=== PATIENT | male | born 1965 | race Caucasian/White ===

== ENCOUNTER 2024-10-05 12:49 | Emergency (ER) | payer MEDICARE, MEDICAID ==
[~2024-10-05] VITALS: Ht 170.2 cm; Wt 82.0 kg
[2024-10-05] MEDS ORDERED: MIDAZOLAM HCL 2 MG/2 ML VIAL IM ONE (14:00)
[2024-10-05] MEDS ORDERED: VALPROATE SODIUM 1,000 MG in DEXT 5% WATER 100 ML IV ONE (14:00)
[2024-10-05 15:00] VITALS: O2SAT 97
[2024-10-05] MEDS: MIDAZOLAM HCL 2 MG/2 ML VIAL IM NR (15:00)
[2024-10-05] MEDS: LORAZEPAM 2MG/ML INJ IM ONE (15:15)
[2024-10-05] MEDS: LEVETIRACETAM 1000MG PREMIX 100 ML IV ONE (16:02)
[2024-10-05 16:21] LABS: BASOPHILS % 0.2 % (0.0-2.0); HEMATOCRIT. 42.6 % (42.0-52.0); HEMOGLOBIN. 14.1 g/dL (14.0-18.0); MEAN CORPUSCULAR HEMOGLOBIN 31.6 pg (28.0-32.0); MEAN CORPUSCULAR HGB CONC 33.1 g/dL (31.0-37.0); MEAN CORPUSCULAR VOLUME 95.5 fL (80.0-94.0); MEAN PLATELET VOLUME 8.9 fl (7.4-10.4); MONOCYTES % 4.8 % (2.0-8.0); PLATELET 248 x1000/uL (130-400); RED BLOOD CELL COUNT 4.46 mill/uL (4.7-6.1); RED CELL DISTRIBUTION WIDTH 14.6 % (11.6-14.6); WHITE BLOOD COUNT 10.6 x1000/uL (4.5-11.0)
[2024-10-05 16:23] LABS: CHLORIDE 105 mEq/L (98-107); POTASSIUM 3.5 mEq/L (3.5-5.1); SODIUM 139 mEq/L (136-145)
[2024-10-05 16:24] LABS: CALCIUM 9.2 mg/dL (8.7-10.4); CARBON DIOXIDE 28 mEq/L (21-32)
[2024-10-05 16:29] LABS: CREATININE 0.8 mg/dL (0.6-1.3); GLUCOSE 152 mg/dL (70-105); UREA NITROGEN BLOOD 10 mg/dL (9-23)
[2024-10-05 16:41] LABS: ETHANOL BLOOD < 10 mg/dL (<10)
[2024-10-05] MEDS: VALPROATE SODIUM 1,000 MG in DEXT 5% WATER 100 ML IV NR (16:43)
[2024-10-05 19:15] VITALS: TEMP 36.94740
[2024-10-05 21:10] VITALS: BP 110/70; PULSE 62; RESP 16; O2SAT 99
== END 2024-10-05 21:11 | disposition home or self-care (01) ==
LOC: ER 12:49
DX: S00.11XA Contusion of right eyelid and periocular area, initial encounter (principal); G40.909 Epilepsy, unspecified, not intractable, without status epilepticus; J44.9 Chronic obstructive pulmonary disease, unspecified; I10 Essential (primary) hypertension; E11.9 Type 2 diabetes mellitus without complications; X58.XXXA Exposure to other specified factors, initial encounter; Y93.89 Activity, other specified; Y92.89 Other specified places as the place of occurrence of the external cause; Y99.8 Other external cause status
CPT/HCPCS: 80048; 80320; 85025; 36415; 70450; 96368; 96365; 96372; 99285; J1953; J2250; J3490; J7060; G0480